=== PATIENT | female | born 1975 | race Caucasian/White ===

== ENCOUNTER 2021-05-29 11:47 | Emergency (ER) | payer MEDICAID ==
[~2021-05-29] VITALS: Ht 157.5 cm; Wt 59.1 kg
[2021-05-29] MEDS ORDERED: CHARCOAL ACTIVATED LIQUID 25 GM/120 ML BTL PO ONE (12:30)
[2021-05-29] MEDS ORDERED: MAGNESIUM SULFATE IN WATER 2 GM in IV 1 EA IV STA ×2 (12:30)
[2021-05-29 13:02] LABS: BASO # 0.1 10^3/uL (0.0-0.2); BASO % 0.9 % (0.0-1.0); EOS # 0.4 10^3/uL (0.0-0.5); EOS % 6.4 % (0.0-3.0); HEMATOCRIT 41.1 % (36.0-47.0); HEMOGLOBIN 14.3 g/dl (12.0-15.5); LYMPH # 1.3 10^3/uL (1.5-5.0); LYMPH % 22.9 % (24.0-44.0); MEAN CORPUSCULAR HEMOGLOBIN 32.9 pg (27.0-33.0); MEAN CORPUSCULAR HGB CONC 34.8 g/dl (32.0-36.5); MEAN CORPUSCULAR VOLUME 94.7 fl (80.0-96.0); MONO # 0.3 10^3/uL (0.0-0.8); MONO % 5.1 % (2.0-8.0); NEUTROPHILS # 3.5 10^3/uL (1.5-8.5); NEUTROPHILS % 64.3 % (36.0-66.0); PLATELET COUNT, AUTOMATED 210 10^3/uL (150-450); RED BLOOD COUNT 4.34 10^6/uL (4.00-5.40); WHITE BLOOD COUNT 5.5 10^3/uL (4.0-10.0)
[2021-05-29 13:30] LABS: HCG, SERUM QUALITATIVE NEGATIVE (NEGATIVE)
[2021-05-29] MEDS ORDERED: NS 1,000 ML IV SCH (13:35)
[2021-05-29 13:38] LABS: ACETAMINOPHEN LEVEL < 2.0 UG/ML (10.0-30.0); ALBUMIN 3.9 GM/DL (3.2-5.2); ALT/SGPT 19 U/L (12-78); BILIRUBIN,DIRECT 0.2 MG/DL (0.0-0.2); BILIRUBIN,TOTAL 0.5 MG/DL (0.2-1.0); BLOOD UREA NITROGEN 11 MG/DL (7-18); CARBON DIOXIDE LEVEL 26 MEQ/L (21-32); CHLORIDE LEVEL 108 MEQ/L (98-107); CPK CREATINE PHOSPHOKINASE 62 U/L (26-192); CREATININE FOR GFR 0.68 MG/DL (0.55-1.30); ETHYL ALCOHOL (ETHANOL) < 0.003 % (0.000-0.010); GLOMERULAR FILTRATION RATE > 60.0 (>58); GLUCOSE, FASTING 81 MG/DL (70-100); MAGNESIUM LEVEL 1.6 MG/DL (1.8-2.4); POTASSIUM SERUM 3.2 MEQ/L (3.5-5.1); SALICYLATE LEVEL 3.9 MG/DL (5.0-30.0); SODIUM LEVEL 139 MEQ/L (136-145); TOTAL PROTEIN 6.8 GM/DL (6.4-8.2)
[2021-05-29 13:39] LABS: THYROID STIMULATING HORMONE 0.346 uIU/ML (0.358-3.740)
[2021-05-29] MEDS ORDERED: POTASSIUM CHLORIDE 10MEQ SR TABLET PO ONE (14:00)
[2021-05-29 16:34] LABS: AMPHETAMINES LEVEL URINE NEGATIVE (NEGATIVE); BARBITURATES URINE NEGATIVE (NEGATIVE); BENZODIAZEPINES URINE POSITIVE (NEGATIVE); CANNABINOIDS URINE POSITIVE (NEGATIVE); COCAINE METABOLITE URINE NEGATIVE (NEGATIVE); METHADONE URINE NEGATIVE (NEGATIVE); OPIATES URINE NEGATIVE (NEGATIVE); PHENCYCLIDINE URINE NEGATIVE (NEGATIVE)
--- NOTE | 2021-05-29 19:07 | ECGEPIP ---
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
--- NOTE | 2021-05-29 19:11 | ECGEPIP ---
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
[2021-05-29] MEDS ORDERED: ASPI81TA26 PO (22:49)
[2021-05-29] MEDS ORDERED: XANA0.5T PO ×2 (22:49)
[2021-05-29] MEDS ORDERED: TRAZ-189 PO (22:49)
[2021-05-29] MEDS ORDERED: ABIL1TAB13 PO (22:49)
[2021-05-29] MEDS ORDERED: PATIENT COMMENT (22:49)
[2021-05-29] MEDS ORDERED: PARO30TA65 PO (22:49)
[2021-05-30] MEDS ORDERED: TRAZ-252 PO (09:38)
[2021-05-30] MEDS ORDERED: HOME MED LIST COMPLETE! XX SCH (09:40)
[2021-05-30] MEDS ORDERED: ARIPiprazole 2 MG TAB PO ONE (09:50)
[2021-05-30 12:14] LABS: RSV AMPLIFICATION NEGATIVE (NEGATIVE)
--- NOTE | 2021-05-30 18:53 | MHIPNPDOC ---
[facility] Progress Note Progress Note DATE OF SERVICE: 05/30/21 Patient presented by PSA, meets criteria for involuntary inpatient admission, patient presents with suicidal ideations, had intentional overdose today. Has h istory of past suicide attempts. See PSA note for details. Vital Signs Vital Signs Date Time Temp Pulse Resp B/P (MAP) Pulse Ox O2 Delivery O2 Flow Rate FiO2 05/30/21 18:25 82 16 151/84 (106) 98 Room Air 05/30/21 16:02 98.2 Laboratory Data 24H Labs Laboratory Tests 2 05/30/21 11:22: Coronavirus (COVID-19)(PCR) NEGATIVE, Influenza Type A (RT-PCR) NEGATIVE, Influenza Type B (RT-PCR) NEGATIVE, Respiratory Syncytial Virus (PCR) NEGATIVE Current Medications Current Medications Medications (Trade) Dose Ordered Sig/Huy Route PRN Reason Start Time Stop Time Status Last Admin Dose Admin Home Med (Home Med List Complete!) ASDIRECTED XX 05/30/21 09:40 05/30/21 09:40 DC Magnesium Sulfate/ Water 2 gm/IV Miscellaneous Supplies 50 ml @ 300 mls/hr STAT STAT IV 05/29/21 12:30 05/29/21 12:39 DC 05/29/21 12:42 Sodium Chloride 1,000 ml @ 150 mls/hr [id number] IV 05/29/21 13:35 05/29/21 20:49 DC 05/29/21 13:22 Allergies Coded Allergies: Penicillins (Verified Allergy, Unknown, 05/29/21) Sulfa (Sulfonamide Antibiotics) (Verified Allergy, Unknown, 05/29/21) cefuroxime (Verified Allergy, Unknown, 05/29/21) clindamycin (Verified Allergy, Unknown, 05/29/21) MACKENZIE ENRIQUEZ MD May 30, 2021 18:53
[2021-05-30] MEDS ORDERED: ASPIRIN 81 MG CHEW TABLET PO SCH (21:00)
[2021-05-30] MEDS ORDERED: PARoxetine 20MG TABLET PO SCH (21:00)
[2021-05-30] MEDS ORDERED: ALPRAZolam 0.5 MG TAB PO SCH (21:00)
[2021-05-30] MEDS ORDERED: traZODone 50 MG TAB PO SCH (21:00)
[2021-05-31 01:35] VITALS: BP 136/83
== END 2021-05-31 01:44 ==
LOC: M ED 11:47 → EDBD 11:47 → M ED 05-31 01:44
DX: T14.91XA Suicide attempt, initial encounter (principal); T50.902A Poisoning by unspecified drugs, medicaments and biological substances, intentional self-harm, initial encounter; F32.A Depression, unspecified; F60.3 Borderline personality disorder; Z88.0 Allergy status to penicillin; Z88.1 Allergy status to other antibiotic agents; Z88.2 Allergy status to sulfonamides; Z79.899 Other long term (current) drug therapy; Z79.82 Long term (current) use of aspirin
CPT/HCPCS: 80048; 80076; 80143; 80307; 82077; 82550; 83735; 84443; 84703; 85025; 87631; 93005; 93041; 94760; 96361; 96365; 99285; J3475